=== PATIENT | male | born 1965 | race Caucasian/White ===

== ENCOUNTER 2020-06-20 15:08 | Outpatient (CLI) | payer OTHER, SELFPAY ==
--- NOTE | ~2020-06-20 | US_ITS ---
EXAMINATION: US carotid duplex BI DATE: 06/20/2020 15:47 INDICATION: Carotid bruit. TECHNIQUE: Grayscale, color Doppler, and pulsed Doppler images of the cervical carotid arteries were obtained. The degree of vessel stenosis is placed in one of the following categories: normal, <50%, 5 0-69%, >=70% but less than near-occlusion, near-occlusion, or total occlusion. Note that percent sten osis relative to normal distal artery lumen diameter is indirectly measured from velocity measurement s as described by Delroy, et al. Radiology 2003; 229:340-346. COMPARISON: Ultrasound 12/12/2005 FINDINGS: RIGHT: The right common carotid artery (CCA) peak systolic velocity (PSV) is 112 cm/s. The right internal ca rotid artery (ICA) PSV is 100 cm/s. The right ICA end-diastolic velocity (EDV) is 37 cm/s. The right ICA/CCA PSV ratio is 0.9. Grayscale and color Doppler images yield an estimate of <50% diameter reduc tion from plaque in the ICA. There is antegrade flow in the right vertebral artery. LEFT: The left CCA PSV is 118 cm/s. The left ICA PSV is 108 cm/s. The left ICA EDV is 18 cm/s. The left ICA /CCA PSV ratio is 0.9. Grayscale and color Doppler images yield an estimate of <50% diameter reductio n from plaque in the ICA. There is antegrade flow in the left vertebral artery. IMPRESSION: 1. <50% stenosis in the right internal carotid artery. 2. <50% stenosis in the left internal carotid artery. Reviewed, dictated and finalized at location B.
== END 2020-06-20 15:09 | disposition home or self-care (01) ==
PROVIDERS: PCP Internal Medicine; Visit Provider Internal Medicine Cardiovascular Disease
DX: R09.89 Other specified symptoms and signs involving the circulatory and respiratory systems (principal); Z72.0 Tobacco use; E78.5 Hyperlipidemia, unspecified; I65.23 Occlusion and stenosis of bilateral carotid arteries
CPT/HCPCS: 93880

== ENCOUNTER → 2021-02-28 15:17 | Outpatient (CLI) | payer OTHER, SELFPAY ==
--- NOTE | ~2021-02-28 | XR_ITS ---
EXAMINATION: XR hip RT min 2V DATE: 02/28/2021 15:46 INDICATION: Chronic right hip pain TECHNIQUE: Two views of right hip were obtained. COMPARISON: 02/10/2013 FINDINGS: There are four orthopedic screws in the right femoral neck without significant change. No h ardware failure or loosening is identified. Bone alignment is normal. There is no fracture. There is mild osteoarthritis of the hip. Phleboliths are noted in the pelvis. IMPRESSION: 1. No acute osseous abnormality. Reviewed, dictated and finalized at location F. [employer]
== END ==
PROVIDERS: Visit Provider Internal Medicine
DX: M54.41 Lumbago with sciatica, right side (principal)
CPT/HCPCS: 73502

== ENCOUNTER 2022-10-21 17:42 | Inpatient (IN) | payer OTHER, SELFPAY ==
--- NOTE | ~2022-10-21 | US_ITS ---
EXAMINATION:US venous doppler LE BI INDICATION:Lower extremity edema TECHNIQUE: Multiple grayscale, color flow and Doppler images of the right and left lower extremity de ep venous systems were obtained and reviewed. COMPARISON:No prior studies for comparison. FINDINGS: The common femoral, superficial femoral and popliteal veins demonstrate normal respiratory variation, augmentation and compressibility. Color flow is also seen within the posterior tibial, pe roneal, greater saphenous and profunda veins. IMPRESSION: 1: No lower extremity deep venous thrombosis. Reviewed, dictated and finalized at location B.
--- NOTE | ~2022-10-21 | CT_ITS ---
CT of the Abdomen and Pelvis: Indication: Abdominal pain, anemia Technique: 2.5 mm axial scans were obtained through the abdomen and pelvis following intravenous adm inistration of 100 cc of Omnipaque 350. Dose reduction technique was used on this scan by utilizing a utomated exposure control and iterative reconstruction technique. The dose-length product (DLP) was 1 102.67 mGy-cm. COMPARISON: 03/22/2009 Findings: Scans through the lung bases demonstrate minimal bilateral pleural effusions. The liver, spleen, pancreas, adrenals and right kidney are within normal limits. Small gallstones are present within the contracted gallbladder, with mild gallbladder wall thickening. Small nonobstructi ng left renal stones noted. There is fullness of the bilateral ureters. No evidence of aortic aneurys m. No lymphadenopathy. No bowel obstruction or bowel wall thickening. There is no evidence to suggest acute appendicitis. Images through the pelvis heart mildly degraded by streak artifact from bilateral femoral hardware. U rinary bladder is unremarkable. No pelvic mass identified. No ascites. Bilateral L5 pars interarticul susanne defects are present, with 9 mm anterolisthesis of L5 over S1. Impression: Cholelithiasis. Mild wall thickening contracted gallbladder. Correlate clinically for acute cholecyst itis. Consider HIDA scan as indicated. Small nonobstructing left renal stones. Distended urinary bladder and mild fullness of bilateral ureters. Correlate for urinary retention. Minimal bilateral pleural effusions. Bilateral L5 pars and reticular defects, with 9 mm anterolisthesis of L5 over S1. Reviewed, dictated and finalized at location . Impression: Cholelithiasis. Mild wall thickening contracted gallbladder. Correlate clinical ly for acute cholecystitis. Consider HIDA scan as indicated. Small nonobstructing left renal stones. Distended urinary bladder and mild fullness of bilateral ureters. Correlate for urinary retention. Minimal bilateral pleural effusions. Bilateral L5 pars and reticular defects, with 9 mm anterolisthesis of L5 over S 1.
--- NOTE | ~2022-10-21 | XR_ITS ---
EXAMINATION: XR chest 1V portable Exam Date/Time: 10/21/2022 22:23 CDT HISTORY: dyspnea; non smoker Comparison: 03/19/2009. RESULT: Lines, tubes, and devices: None. Lungs and pleura: Diffuse reticulonodular opacities. Cardiomediastinal silhouette: Stable. Other: No acute osseous or upper abdominal finding. Bone island in the right anterior rib. IMPRESSION: Pulmonary opacities may represent bronchiolitis, as can be seen with atypical infection, asthma, aspi ration, and small airways disease. Reviewed, dictated and finalized at location K. IMPRESSION: Pulmonary opacities may represent bronchiolitis, as can be seen with atypical i nfection, asthma, aspiration, and small airways disease.
[2022-10-21 17:45] VITALS: BP 121/55; PULSE 92; RESP 18; TEMP 37.2; O2SAT 100
[2022-10-21 19:49] VITALS: BP 102/54; PULSE 75; RESP 19; TEMP 36.5; O2SAT 98
[2022-10-21 21:55] VITALS: PULSE 81
[2022-10-21 22:00] VITALS: BP 122/64; PULSE 77; RESP 20; O2SAT 100
[2022-10-21 22:03] VITALS: RESP 17; O2SAT 100
--- NOTE | 2022-10-21 22:22 | ECG_ITS ---
Measurements Intervals [place] Rate: 77 P: 64 MI: 184 QRS: 55 QRSD: 102 T: 177 QT: 399 QTc: 454 Interpretive Statements SINUS RHYTHM RSR' IN V1 OR V2, CONSIDER RIGHT VENTRICULAR HYPERTROPHY OR RIGHT VCD ST-T WAVE ABNORMALITY IN LAT/HIGH LAT LEADS- CONSIDER ISCHEMIA ABNORMAL ECG NO PREVIOUS ECG AVAILABLE FOR COMPARISON Electronically Signed On 10-22-2022 6:25:13 CDT by Ruddy Mercado D.O.
[2022-10-21 23:03] LABS: Ammonia < 9 umol/L (9-30); Ethanol < 10 mg/dL (<10)
[2022-10-21 23:05] LABS: Appearance Urine Clear (Clear); Bacteria Urine None Seen /hpf; Bilirubin Urine Negative (Negative); Blood Urine Negative (Negative); Color Urine Yellow (Yellow); Glucose Urine UA Negative (Negative); Ketones Urine Negative (Negative); Leukocyte Esterase Ur Negative LEU/UL (Negative); Nitrate Urine Negative (Negative); Non Pathogenic Casts 0-2; Protein Urine 1+ mg/dL (Negative); RBC Urine 0-2 /hpf (0-2); Specific Grav Ur 1.014 (1.001-1.035); Squamous Epithelial Cell Urine None seen /hpf (Few); WBC Urine 0-5 /hpf; pH Urine 6.5 (5.0-9.0)
[2022-10-21] MEDS: FUROSEMIDE INJ 40 MG/4 ML VIAL IV PUSH (23:08)
[2022-10-21 23:23] LABS: Basophils Percent Auto 0.1 % (0.2-1.2); Eosinophils Absolute Auto 0.3 K/mm3 (0-0.3); Eosinophils Percent Auto 3.5 % (0-4.4); Immature Granulocyte Absolute 0.03 K/mm3 (0.00-0.031); Immature Granulocyte Percent A 0.4 % (0-0.5); Lymphocytes Absolute Auto 1.71 K/mm3 (0.9-3.2); Lymphocytes Percent Auto 21.5 % (18.3-44.2); Mean Corpuscular HGB Conc 23.9 g/dl (32-36); Mean Corpuscular Hemoglobin 18.1 pg (26-34); Mean Corpuscular Volume 75.7 fl (80-100); Mean Platelet Volume 12.5 fl (7.4-10.4); Monocytes Absolute Auto 0.6 K/mm3 (0.1-0.6); Monocytes Percent Auto 7.3 % (2.6-8.5); Neutrophils Absolute Auto 5.4 K/mm3 (1.3-6.7); Neutrophils Percent Auto 67.2 % (45.5-73.1); Nucleated Red Blood Cells Absolute Auto 0.3 K/mm3 (0.0-0.012); Nucleated Red Blood Cells Perc 3.8 % (0.0-0.2); Platelet Count Result 378 k/mm3 (150-375); Red Blood Count 1.44 M/mm3 (4.6-6.20); Red Cell Distribution Width 24.8 % (11.5-14.5)
[2022-10-21 23:34] LABS: INR 1.4
[2022-10-21 23:35] LABS: Partial Thromboplastin Time 28.1 SECONDS (22.3-36.8)
[2022-10-21 23:36] LABS: Hematocrit 10.9 % (42.0-52.0); Hemoglobin 2.6 g/dL (14.0-18.0)
[2022-10-21 23:40] LABS: Add Urine Microscopic? YES
[2022-10-21 23:40] LABS: Lactic Acid Reflex 1.7 mmol/L (0.7-2.0)
[2022-10-21 23:47] VITALS: BP 108/52; PULSE 85; RESP 16; O2SAT 98
[2022-10-21 23:49] LABS: Alanine Aminotransferase 25 U/L (6-50); Albumin Level 3.7 g/dL (3.5-5.1); Alkaline Phosphatase 109 U/L (38-126); Anion Gap 10 mmol/L (8-16); Aspartate Amino Transferase 30 U/L (17-59); Bilirubin,Total 0.2 mg/dL (0.2-1.3); Blood Urea Nitrogen 14 mg/dL (9-20); Calcium 8.5 mg/dL (8.4-10.2); Carbon Dioxide 23 mmol/L (22-30); Chloride 105 mmol/L (98-107); Estimated CRCL calculation 111 ml/min; Estimated Glomerular Filt Rate > 60; Glucose 93 mg/dL (65-110); Magnesium 2.5 mg/dL (1.6-2.3); Potassium 3.8 mmol/L (3.4-5.0); Sodium 138 mmol/L (137-145)
[2022-10-21 23:50] LABS: Platelet Estimate Adequate (Adequate)
[2022-10-21 23:51] LABS: Anisocytosis 2+ (NORMAL); Hypochromasia 2+ (NORMAL); Poikilocytosis 1+ (NORMAL); Polychromasia 1+ (NORMAL)
[2022-10-21 23:52] LABS: Schistocytes Rare (NORMAL)
[2022-10-22] VITALS (52 sets, daily range): BP systolic 100–142; BP diastolic 51–74; PULSE 47–86; RESP 13–22; TEMP 35.9–37; O2SAT 94–100; BMI 33.4
[2022-10-22] LABS: NT Pro B Type Natriuretic Pept 1190 pg/mL (19.9-100); Troponin I < 0.012 ng/mL (0.000-0.034)
--- NOTE | 2022-10-22 01:58 | ED.GENADULT ---
HPI - General Adult General Chief complaint: Unspecified Stated complaint: generalized swelling Time Seen by Provider: 10/21/22 22:01 History of Present Illness HPI narrative: Patient 56-year-old gentleman who presents emergency department chief complaint of shortness of breath with exertion and peripheral edema. Patient was recently admitted at [facility] for alcohol detox the patient also has atrial fibrillation and is on a DOAC. Patient reports that few weeks ago he had an episode of nosebleeds and stopped his anticoagulant until the bleeding subsided. Patient states that he has had no other bleeding since then reports no trauma reports no blood in his stool or black tarry stools. The patient reports that he has had significant edema of his lower extremities Related Data Allergies Allergy/AdvReac Type Severity Reaction Status Date / Time cephalexin Allergy Unknown AFFECTED Verified 10/21/22 22:00 BODY TEMP Penicillins Allergy Unknown Unknown Verified 10/21/22 22:00 piperacillin Allergy Unknown Unknown Verified 10/21/22 22:00 Sulfa (Sulfonamide Allergy Unknown Unknown Verified 10/21/22 22:00 Antibiotics) Review of Systems Review of Systems: A 10 system review of systems was completed on the patient and is negative except for what is stated in the HPI. Nursing and ancillary documentation was reviewed. [facility] Family History Family History Sibling Patient's sister is in good health Family history of diabetes mellitus in first degree relative Depression Mother Family history of diabetes mellitus in first degree relative Acute myocardial infarction Father Family history of lung cancer Patient's father is Family history of allergic disorder Grandparent Family history of heart disease in male family member before age 55 Other Diabetes mellitus Family history of arthritis Family history of lung disease Family history of malignant neoplasm Hypertension Social History Social History Smoking status: Never smoker Second hand tobacco smoke exposure: Yes Alcohol intake: never Exam Narrative: GENERAL: Ill-appearing, pale, and in no acute distress. HEAD: Normocephalic, atraumatic. EYES: PERRLA and EOMI. ENT: Nares clear, no rhinorrhea or epistaxis. Mucous membranes moist. NECK: Supple. CHEST: Clear to auscultation. No respiratory distress. HEART: Regular rate and rhythm. No murmur heard. Normal peripheral pulses. ABDOMEN: Soft, nontender, nondistended, normal active bowel sounds. : Guaiac negative stool EXTREMITIES: Normal range of motion. 2+ edema. SKIN: Warm, dry, no rash. NEURO: No focal deficits. Alert and oriented x3. PSYCH: Normal mood and affect. Course Vital Signs Vital signs: Vital Signs Temperature 37.2 C 10/21/22 17:45 Pulse Rate 92 10/21/22 17:45 Respiratory Rate 18 10/21/22 17:45 Blood Pressure 121/55 L 10/21/22 17:45 Pulse Oximetry 100 10/21/22 17:45 Oxygen Delivery Room Air 10/21/22 17:45 Temperature 36.5 C 10/21/22 19:49 Pulse Rate 76 10/22/22 02:06 Respiratory Rate 16 10/21/22 23:47 Blood Pressure 124/64 10/22/22 02:06 Pulse Oximetry 100 10/22/22 02:06 Oxygen Delivery Room Air 10/21/22 17:45 Medical Decision Making [facility] Narrative Medical decision making narrative: Differential diagnosis includes CHF, renal failure, anemia Laboratory studies were obtained on the patient which showed a hemoglobin of 2.6 this was verified by repeat blood draw Electrolytes showed normal CMP with a BUN of 14 and a creatinine is 0.8 Lactate is 1.7 magnesium is 2.5 ammonia was less than 9 troponin is less than 0.012 BNP was 1190 albumin was 3.7 Urinalysis showed no evidence of UTI EtOH was negative Chest x-ray showed no acute findings CT scan of the abdomen pelvis showed no acute find
[2022-10-22] MEDS: SODIUM CHLORIDE 0.9% IV 250 ML 30 ML IV CONT ×2 (03:27→16:45)
--- NOTE | 2022-10-22 05:04 | ADMGEN ---
This patient, Sebastián Bravo, was admitted to IMU Room 203-01 on 10/22/2022 at 0440. Patient/family oriented to hospital policies and general routines including ID bracelet, bed and alarms, visiting hours, pain management, procedures, bathroom and other care routines, personal items, smoking policy, room service/diet, and visiting hours. Information on how to activate the Rapid Response Team has been discussed. Patient/Family are encouraged to report perceived risks to care and to ask questions if they do not understand what they are told or what they should do.
[2022-10-22] MEDS: TUBING, BLOOD PLUM PUMP TUBING 1 EACH XX (05:50)
[2022-10-22] MEDS: SODIUM CHLORIDE 0.9% IV 250 ML 30 ML (05:51)
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
[2022-10-22] MEDS: PANTOPRAZOLE SODIUM IV 40 MG VIAL IV PUSH ×2 (08:27→20:50)
[2022-10-22 09:22] LABS: Hemoglobin 4.1 g/dL (14.0-18.0)
[2022-10-22 09:39] LABS: Iron 17 ug/dL (49-181)
[2022-10-22 09:48] LABS: Percent Iron Saturation 4 % (20-50)
[2022-10-22 09:51] LABS: Lactate Dehydrogenase 220 U/L (120-246)
[2022-10-22] MEDS: FUROSEMIDE INJ 40 MG/4 ML VIAL IV PUSH ×2 (09:59→18:32)
[2022-10-22] MEDS: THIAMINE HCL 200 MG/2 ML VIAL 100 MG IV PUSH (09:59)
[2022-10-22 10:03] LABS: Troponin I < 0.012 ng/mL (0.000-0.034)
[2022-10-22] MEDS: ARIPiprazole 5 MG TABLET 15 MG PO (10:05)
[2022-10-22] MEDS: GABAPENTIN 400 MG CAPSULE PO ×4 (10:06→20:50)
[2022-10-22] MEDS: DULoxetine HCL 60 MG CAPSULE.DR PO (10:06)
[2022-10-22] MEDS: LEVALBUTEROL NEB 1.25 MG/3 ML INHALATION ×3 (10:06→20:05)
[2022-10-22] MEDS: FOLIC ACID 1 MG TABLET PO (10:07)
[2022-10-22 10:15] LABS: Ferritin 4.49 ng/mL (11.1-264)
[2022-10-22 10:19] LABS: Immature Reticulocyte Fraction 6.4 % (3.0-15.9); Reticulocyte Hemoglobin Conten 14.6 pg (28.2-35.7); Reticulocyte Percent 4.19 % (0.7-4.3); Reticulocytes Absolute 0.08 M/mm3 (0.02-0.1)
[2022-10-22 10:28] LABS: Folic Acid 15.9 ng/mL (2.76->20)
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
[2022-10-22 16:03] LABS: Hematocrit 19.8 % (42.0-52.0); Hemoglobin 5.6 g/dL (14.0-18.0)
--- NOTE | 2022-10-22 17:10 | PC.NURSE ---
On 10/22/22, the student, Trae [employer], provided care and completed [facility] documentation on this patient. I have reviewed the student's documentation and agree with the findings.
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
[2022-10-22] MEDS: ATORVASTATIN 40 MG TABLET PO (20:49)
[2022-10-22] MEDS: METOPROLOL SUCCINATE EXT REL 25 MG TABCR PO (20:50)
[2022-10-22 22:21] LABS: Hematocrit 22.3 % (42.0-52.0)
[2022-10-22 22:23] LABS: Hemoglobin 6.7 g/dL (14.0-18.0)
[2022-10-23] VITALS (25 sets, daily range): BP systolic 101–133; BP diastolic 40–71; PULSE 51–78; RESP 16–20; TEMP 36.2–36.8; O2SAT 94–100
[2022-10-23 05:22] LABS: Basophils Absolute Auto 0.1 K/mm3 (0.0-0.1); Basophils Percent Auto 0.8 % (0.2-1.2); Eosinophils Absolute Auto 0.3 K/mm3 (0-0.3); Eosinophils Percent Auto 3.1 % (0-4.4); Hematocrit 22.6 % (42.0-52.0); Immature Granulocyte Absolute 0.04 K/mm3 (0.00-0.031); Immature Granulocyte Percent A 0.4 % (0-0.5); Lymphocytes Absolute Auto 1.55 K/mm3 (0.9-3.2); Lymphocytes Percent Auto 14.2 % (18.3-44.2); Mean Corpuscular HGB Conc 29.6 g/dl (32-36); Mean Corpuscular Hemoglobin 23.6 pg (26-34); Mean Corpuscular Volume 79.6 fl (80-100); Mean Platelet Volume 11.5 fl (7.4-10.4); Monocytes Absolute Auto 0.7 K/mm3 (0.1-0.6); Monocytes Percent Auto 6.8 % (2.6-8.5); Neutrophils Absolute Auto 8.2 K/mm3 (1.3-6.7); Neutrophils Percent Auto 74.7 % (45.5-73.1); Nucleated Red Blood Cells Absolute Auto 0.2 K/mm3 (0.0-0.012); Nucleated Red Blood Cells Perc 1.9 % (0.0-0.2); Platelet Count Result 284 k/mm3 (150-375); Red Blood Count 2.84 M/mm3 (4.6-6.20); Red Cell Distribution Width 20.9 % (11.5-14.5); White Blood Count 10.9 K/mm3 (4.5-10.0)
[2022-10-23 05:25] LABS: Hemoglobin 6.7 g/dL (14.0-18.0)
[2022-10-23 05:26] LABS: Hypochromasia 2+ (NORMAL); Platelet Estimate Adequate (Adequate); Schistocytes None Seen (NORMAL)
[2022-10-23 05:41] LABS: Alanine Aminotransferase 31 U/L (6-50); Albumin Level 2.9 g/dL (3.5-5.1); Alkaline Phosphatase 95 U/L (38-126); Anion Gap 2 mmol/L (8-16); Aspartate Amino Transferase 33 U/L (17-59); Bilirubin,Total 0.4 mg/dL (0.2-1.3); Blood Urea Nitrogen 14 mg/dL (9-20); Calcium 7.9 mg/dL (8.4-10.2); Carbon Dioxide 29 mmol/L (22-30); Chloride 104 mmol/L (98-107); Estimated CRCL calculation 103 ml/min; Estimated Glomerular Filt Rate > 60; Glucose 95 mg/dL (65-110); Potassium 3.4 mmol/L (3.4-5.0); Sodium 135 mmol/L (137-145)
[2022-10-23] MEDS: LEVALBUTEROL NEB 1.25 MG/3 ML INHALATION ×3 (08:06→20:49)
[2022-10-23] MEDS: DULoxetine HCL 60 MG CAPSULE.DR PO (08:28)
[2022-10-23] MEDS: FOLIC ACID 1 MG TABLET PO (08:29)
[2022-10-23] MEDS: PANTOPRAZOLE SODIUM IV 40 MG VIAL IV PUSH ×2 (08:29→20:29)
[2022-10-23] MEDS: GABAPENTIN 400 MG CAPSULE PO ×4 (08:29→20:29)
[2022-10-23] MEDS: FUROSEMIDE INJ 40 MG/4 ML VIAL IV PUSH ×2 (08:29→16:28)
[2022-10-23] MEDS: IRON SUCROSE COMPLEX 500 MG in SODIUM CHLORIDE 0.9% IV 250 ML 78.57 MG IVPB (08:30)
[2022-10-23] MEDS: THIAMINE HCL 200 MG/2 ML VIAL 100 MG IV PUSH (08:30)
--- NOTE | 2022-10-23 09:00 | ECG_ITS ---
Measurements Intervals [place] Rate: 56 P: 19 [place]: 180 QRS: 21 QRSD: 110 T: 156 QT: 425 QTc: 413 Interpretive Statements SINUS BRADYCARDIA RSR' IN V1 OR V2, CONSIDER RIGHT VENTRICULAR HYPERTROPHY OR RIGHT VCD ST-T WAVE ABNORMALITY IN LAT/HIGH LAT LEADS- CONSIDER ISCHEMIA ABNORMAL ECG COMPARED TO ECG 10/21/2022 22:52:14 SINUS BRADYCARDIA NOW PRESENT Electronically Signed On 10-23-2022 9:45:43 CDT by Ruddy Mercado D.O.
[2022-10-23] MEDS: BISACODYL 5 MG TABLET EC 10 MG PO ×3 (13:48→20:29)
[2022-10-23] MEDS: polyethylene glycoL 3350 238 GM BOTTLE PO (16:26)
--- NOTE | 2022-10-23 16:44 | PM.IMPN ---
Progress Note: A&P Assessment and Plan (1) Acute anemia: Code(s): D64.9 - Anemia, unspecified Status: Acute Assessment and Plan: Patient presents with weakness and found to have profound anemia with a hemoglobin of 2.6. Given his history of alcoholism and the fact he is on NOAC, etiology most likely is related to GI bleed albeit slowly since he is seems to be hemodynamically well compensated despite stool guaiac negative in ED. His nucleated red blood cells are elevated to suggest good bone marrow response so feel this is less likely myelodysplastic syndrome. Hemolysis seems less likely with normal bili and no Antibodies on cross match but has rare schistocytes. LDH normal. Iron studies consistent with iron deficiency so more likely GI blood loss He has been transfused 6 units of packed red blood cells total since admission and tolerated this well. Hgb up to 6.7 IV iron ordered. Resume Seroquel Continue serial H&H. Continue Protonix IV. Continue IV Lasix Appreciate GI and H/O consult. (2) High output heart failure: Code(s): I50.83 - High output heart failure Status: Acute Assessment and Plan: Patient with a history of a cardiomyopathy of unclear etiology. Patient has no history of heart failure. Given the profound anemia, suspect he has high-output heart failure given the pleural effusions and a significant pedal edema. He is wheezing but is a heavy smoker and this may be either cardiac related and/or from COPD. Lung exam better with diuresis and neb treatments. Lower extremity venous Dopplers negative for DVT. Negative fluid balance. Continue IV Lasix. (3) Alcoholism: Code(s): F10.20 - Alcohol dependence, uncomplicated Status: Acute Assessment and Plan: Patient has history of alcoholism. Last drink was 3-4 weeks ago. No history of seizures but does have a history of DTs. CIWA showing no signs of withdrawal. Continue thiamine and folate. Librium will be available as needed for signs of symptoms of withdrawal. (4) Atrial fibrillation: Code(s): I48.91 - Unspecified atrial fibrillation Status: Acute Assessment and Plan: Patient has a history of atrial fibrillation diagnosed a few months ago. EKG reviewed showing normal sinus rhythm with ST-T wave changes in lateral and high lateral leads. No old EKG to compare. Repeat EKG showing no change. He was on metoprolol for rate control and Eliquis for stroke prophylaxis. He has a history of stroke and his BRISA score is elevated (4 per Cards note) justifying anticoagulation. Eliquis currently on hold. Will need to discuss with him about the risks versus the benefits of anticoagulation depending on what we find has etiology of his anemia. (5) Cardiomyopathy: Code(s): I42.9 - Cardiomyopathy, unspecified Status: Acute Assessment and Plan: Echo in June 2022 shows EF 54% with LV OT obstruction without gradient. He also had a mobile echodensity on the mitral valve felt to be a torn chordae versus torn papillary muscle. As above. (6) COPD (chronic obstructive pulmonary disease): Code(s): J44.9 - Chronic obstructive pulmonary disease, unspecified Status: Acute Assessment and Plan: As above (7) Tobacco abuse: Code(s): Z72.0 - Tobacco use Status: Acute Assessment and Plan: Patient was educated about benefits smoking cessation. Plan Psychiatric disorder - not otherwise specified. QTc 454. Continue home medications. Hx of CVA - Brain CT in June showing age indeterminate right CVA centrum semi-ovale and old right frontal infarct. Elquis on hold. Continue atorvastatin. DVT prophylaxis - SCDs Diet - clear, NPO after MN Code status - full Subjective Date/time seen: 10/23/22 16:44 Interval history: 56yo male with hx of alcoholism, cardiomyopathy and AFib on anticoagulation here for weakness and leg swelling.?? Patient f
--- NOTE | 2022-10-23 17:17 | PC.NURSE ---
On 10/23/22, the student, Celina [facility], provided care and completed [facility] documentation on this patient. I have reviewed the student's documentation and agree with the findings.
[2022-10-23] MEDS: POTASSIUM CHLORIDE 20 MEQ ER TABLET 40 MEQ PO (17:49)
[2022-10-23 17:51] LABS: Hematocrit 25.8 % (42.0-52.0); Hemoglobin 7.7 g/dL (14.0-18.0)
[2022-10-23] MEDS: ATORVASTATIN 40 MG TABLET PO (20:30)
[2022-10-23] MEDS: METOPROLOL SUCCINATE EXT REL 25 MG TABCR PO (20:30)
[2022-10-24] VITALS (19 sets, daily range): BP systolic 103–148; BP diastolic 51–76; PULSE 51–84; RESP 12–20; TEMP 36.1–37.1; O2SAT 92–100
--- NOTE | 2022-10-24 | ECHO_ITS ---
Patient Info Name: Sebastián Bravo Age: 56 years : 1965 Gender: Male Ht: 72 in Wt: 240 lbs BSA: 2.38 m2 HR: 64 bpm BP: 135 / 63 mmHg Heart Rhythm: Sinus Rhythm Technical Quality: Fair Exam Date: 10/24/2022 11:30 AM Exam Location: [facility] Pulmonary Exam Room: 203 Patient Status: Inpatient Admit Date: 10/22/2022 Staff Ordering Physician: Florian Chandra MD Pre Billing Clinician: Brittny Rice RDCS Attending Provider: Maykel Calvillo MD Exam Type: CA echo doppler color flow Study Info Indications - CHF Complete two-dimensional, color flow and Doppler transthoracic echocardiogram is performed. Summary 1. Complete two-dimensional, color flow and Doppler transthoracic echocardiogram is performed. 2. Mild concentric LVH with hyperdynamic systolic function and grade 1 diastolic noncompliance. 3. Sclerosis and immobility of the right coronary cusp of the aortic valve with mild AI and no aortic stenosis. 4. Calcified mitral valve annulus. 5. Mild left atrial enlargement. 6. Mild MR. Left Ventricle Left ventricular chamber dimension is normal. Left ventricular systolic function is hyperdynamic, estimated at >70%. The left ventricular diastolic function is grade I diastolic dysfunction. Right Ventricle Right ventricular chamber dimension is normal. Left Atria Left atrial chamber dimension is mildly enlarged. Right Atria Right atrial chamber dimension is normal. Aortic Valve The aortic valve is trileaflet. There is mild aortic valve regurgitation. Pulmonic Valve The pulmonic valve is not well visualized. Mitral Valve The mitral valve has normal leaflets. There is mild mitral valve regurgitation. The mitral valve annulus is mildly calcified. Tricuspid Valve The tricuspid valve leaflets are normal. Pericardium/Pleural The pericardium appears normal. Aorta The aortic root size at the sinus of Valsalva is normal. Left Ventricular Outflow Tract Name Value Normal LVOT 2D LVOT Diameter 2.1 cm LVOT Doppler LVOT Peak Gradient 9 mmHg LVOT Mean Gradient 5 mmHg LVOT VTI 33 cm LVOT VTI/AV VTI Ratio 0.6 LVOT Stroke Volume 115 ml LVOT CO 22.3 l/min LVOT CI 9.4 l/min/m2 Pulmonic Valve Name Value Normal PV Doppler PV Peak Gradient 4 mmHg Mitral Valve Name Value Normal MV Doppler MV Decel Pike 475 cm/s2 MV PHT 73 ms MV Area (PHT) 3.0 cm2 4.0-5.0 MV Diastolic Func
[2022-10-24 00:23] LABS: Hematocrit 23.4 % (42.0-52.0)
[2022-10-24 00:27] LABS: Hemoglobin 6.9 g/dL (14.0-18.0)
[2022-10-24] MEDS: LEVALBUTEROL NEB 1.25 MG/3 ML INHALATION ×3 (03:45→20:17)
[2022-10-24 04:58] LABS: Basophils Absolute Auto 0.1 K/mm3 (0.0-0.1); Basophils Percent Auto 0.9 % (0.2-1.2); Eosinophils Absolute Auto 0.4 K/mm3 (0-0.3); Eosinophils Percent Auto 4.4 % (0-4.4); Hematocrit 22.3 % (42.0-52.0); Immature Granulocyte Absolute 0.04 K/mm3 (0.00-0.031); Immature Granulocyte Percent A 0.5 % (0-0.5); Lymphocytes Absolute Auto 1.34 K/mm3 (0.9-3.2); Lymphocytes Percent Auto 16.6 % (18.3-44.2); Mean Corpuscular Hemoglobin 23.9 pg (26-34); Mean Corpuscular Volume 79.6 fl (80-100); Mean Platelet Volume 11.5 fl (7.4-10.4); Monocytes Absolute Auto 0.8 K/mm3 (0.1-0.6); Monocytes Percent Auto 9.8 % (2.6-8.5); Neutrophils Absolute Auto 5.5 K/mm3 (1.3-6.7); Neutrophils Percent Auto 67.8 % (45.5-73.1); Nucleated Red Blood Cells Absolute Auto 0.4 K/mm3 (0.0-0.012); Nucleated Red Blood Cells Perc 4.6 % (0.0-0.2); Platelet Count Result 290 k/mm3 (150-375); Red Cell Distribution Width 21.2 % (11.5-14.5); White Blood Count 8.1 K/mm3 (4.5-10.0)
[2022-10-24 05:02] LABS: Hemoglobin 6.7 g/dL (14.0-18.0)
[2022-10-24 05:23] LABS: Anisocytosis 1+ (NORMAL); Basophilic Stippling 1+ (NORMAL); Hypochromasia 2+ (NORMAL); Large Platelets Present; Platelet Estimate Adequate (Adequate); Poikilocytosis 1+ (NORMAL); Polychromasia 1+ (NORMAL); Schistocytes Rare (NORMAL)
[2022-10-24 05:24] LABS: Anion Gap 4 mmol/L (8-16); Blood Urea Nitrogen 8 mg/dL (9-20); Calcium 8.1 mg/dL (8.4-10.2); Carbon Dioxide 31 mmol/L (22-30); Chloride 102 mmol/L (98-107); Estimated CRCL calculation 129 ml/min; Estimated Glomerular Filt Rate > 60; Glucose 84 mg/dL (65-110); Magnesium 1.9 mg/dL (1.6-2.3); Phosphorus 3.7 mg/dL (2.5-4.5); Potassium 3.1 mmol/L (3.4-5.0); Sodium 137 mmol/L (137-145)
[2022-10-24] MEDS: MAGNESIUM CITRATE 300 ML BTL 150 ML PO (08:07)
[2022-10-24] MEDS: GABAPENTIN 400 MG CAPSULE PO ×3 (08:08→21:31)
[2022-10-24] MEDS: POTASSIUM CHLORIDE 20 MEQ ER TABLET 40 MEQ PO (08:08)
[2022-10-24] MEDS: THIAMINE HCL 100 MG TABLET PO (08:09)
[2022-10-24] MEDS: DULoxetine HCL 60 MG CAPSULE.DR PO (08:09)
[2022-10-24] MEDS: FOLIC ACID 1 MG TABLET PO (08:09)
[2022-10-24] MEDS: PANTOPRAZOLE SODIUM IV 40 MG VIAL IV PUSH ×2 (08:10→21:31)
[2022-10-24] MEDS: FUROSEMIDE INJ 40 MG/4 ML VIAL IV PUSH ×2 (08:10→18:00)
[2022-10-24] MEDS: IRON SUCROSE COMPLEX 500 MG in SODIUM CHLORIDE 0.9% IV 250 ML 78.57 MG IVPB (09:18)
[2022-10-24] MEDS: POTASSIUM CHLORIDE 20 MEQ ER TABLET PO (09:22)
--- NOTE | 2022-10-24 11:08 | WPDANESEPPF ---
Anes - Initial Pre Proc Eval Procedure: Operation Date: 10/24/22 14:00 Proposed Procedures p Esophagogastroduodenoscopy & Colonoscopy - Yonathan Quiroz MD Date/Time: 10/24/22 11:08 Surgeon: Maykel Calvillo MD Pre Op Diagnosis: Acute Anemia, Dyspnea on Exertion Patient Data Age: 56 Gender: M Height: 1.83 m Weight: 107.8 kg Last Vital Signs Temp 37.1 C 10/24/22 08:00 Pulse 57 L 10/24/22 10:00 Resp 12 10/24/22 08:00 BP 136/59 L 10/24/22 08:00 Pulse Ox 95 10/24/22 08:00 O2 Del Method Room Air 10/24/22 08:00 FiO2 21 10/24/22 07:20 Allergies Allergy/AdvReac Type Severity Reaction Status Date / Time cephalexin Allergy Unknown AFFECTED Verified 10/24/22 12:46 BODY TEMP Penicillins Allergy Unknown Unknown Verified 10/24/22 12:46 piperacillin Allergy Unknown Unknown Verified 10/24/22 12:46 Sulfa (Sulfonamide Allergy Unknown Unknown Verified 10/24/22 12:46 Antibiotics) Home Medications Medication Instructions Recorded Confirmed Type apixaban 5 mg tablet (Eliquis) 5 mg PO BID 10/22/22 10/22/22 History aripiprazole 15 mg tablet 15 mg PO QAM 10/22/22 10/22/22 History atorvastatin 40 mg tablet 40 mg PO QHS 10/22/22 10/22/22 History duloxetine 60 mg capsule,delayed 60 mg PO DAILY 10/22/22 10/22/22 History release ergocalciferol (vitamin D2) 1,250 1,250 mcg PO WEEKLY 10/22/22 10/22/22 History mcg (50,000 unit) capsule furosemide 20 mg tablet 20 mg PO DAILY 10/22/22 10/22/22 History gabapentin 400 mg capsule 400 mg PO QID 10/22/22 10/22/22 History methocarbamol 500 mg tablet 500 mg PO BID 10/22/22 10/22/22 History metoprolol succinate 100 mg 50 mg PO QHS 10/22/22 10/22/22 History tablet,extended release 24 hr naltrexone 50 mg tablet 50 mg PO QAM 10/22/22 10/22/22 History quetiapine 150 mg tablet 150 mg PO QHS 10/22/22 10/22/22 History Laboratory Tests 10/23/22 10/24/22 10/24/22 17:11 00:00 04:50 WBC 8.1 K/mm3 (4.5-10.0) RBC 2.80 L M/mm3 (4.6-6.20) Hgb 7.7 L g/dL 6.9 L* g/dL 6.7 L* g/dL (14.0-18.0) (14.0-18.0) (14.0-18.0) Hct 25.8 L % 23.4 L % 22.3 L % (42.0-52.0) (42.0-52.0) (42.0-52.0) MCV 79.6 L fl (80-100) MCH 23.9 L pg (26-34) MCHC 30.0 L g/dl (32-36) RDW 21.2 H % (11.5-14.5) Plt Count 290 k/mm3 (150-375) MPV 11.5 H fl (7.4-10.4) Immature Gran % (Auto) 0.5 % (0-0.5) Neut % (Auto) 67.8 % (45.5-73.1) Lymph % (Auto) 16.6 L % (18.3-44.2) Walker % (Auto) 9.8 H % (2.6-8.5) Eos % (Auto) 4.4 % (0-4.4) Baso % (Auto) 0.9 % (0.2-1.2) Lymph # (Auto) 1.34 K/mm3 (0.9-3.2) Walker # (Auto) 0.8 H K/mm3 (0.1-0.6) Eos # (Auto) 0.4 H K/mm3 (0-0.3) Baso # (Auto) 0.1 K/mm3 (0.0-0.1) Abs Immat Gran (auto) 0.04 H K/mm3 (0.00-0.031) Absolute Neuts (auto) 5.5 K/mm3 (1.3-6.7) Absolute Nucleated RBC 0.4 H K/mm3 (0.0-0.012) Nucleated RBC % 4.6 H % (0.0-0.2) Platelet Estimate Adequate (Adequate) Large Platelets Present Polychromasia 1+ (NORMAL) Hypochromasia 2+ (NORMAL) Poikilocytosis 1+ (NORMAL) Basophilic Stippling 1+ (NORMAL) Anisocytosis 1+ (NORMAL) Schistocytes Rare (NORMAL) Sodium 137 mmol/L (137-145) Potassium 3.1 L mmol/L (3.4-5.0) Chloride 102 mmol/L (98-107) Carbon Dioxide 31 H mmol/L (22-30) Anion Gap 4 L mmol/L (8-16) BUN 8 L D mg/dL (9-20) Creatinine 0.70 mg/dL (0.7-1.3) Estim Creat Clear Calc 129 ml/min Estimated GFR > 60 (59 - ) Glucose 84 mg/dL (65-110) Calcium 8.1 L mg/dL (8.4-10.2) Phosphorus 3.7 mg/dL (2.5-4.5) Magnesium 1.9 mg/dL (1.6-2.
[2022-10-24] MEDS: LACTATED RINGERS 1,000 ML 150 ML IV CONT (12:45)
--- NOTE | 2022-10-24 14:20 | SUR.OPER ---
EGD END TIME: 1408 COLON START TIME: 1415
--- NOTE | 2022-10-24 17:42 | PM.IMPN ---
Progress Note: A&P Assessment and Plan (1) Acute anemia: Code(s): D64.9 - Anemia, unspecified Status: Acute Assessment and Plan: Patient presents with weakness and found to have profound anemia with a hemoglobin of 2.6. Given his history of alcoholism and the fact he is on NOAC, etiology most likely is related to GI bleed albeit slowly since he is seems to be hemodynamically well compensated and despite stool guaiac negative in ED. Iron studies consistent with iron deficiency so more likely GI blood loss. Retic count was normal and retic Hgb content low. Hemolysis seems less likely with normal bili and no antibodies on cross match but has rare schistocytes. LDH normal. Nucleated RBCs noted could be from hemolysis or stress from the severe anemia. Consider myelofibrosis. He has been transfused 6 units of packed red blood cells total since admission and tolerated this well. Hgb up to 6 range and stable IV iron ordered. Colonoscopy showing 2 polyps (ascending, descending colon) that were removed EGD showing nonerosive reflux disease with concerns for Barr's. Biopsies taken. Single AVM noted in 2nd part of the duodenum that was ablated. AVM causing intermittent blood loss? Continue to monitor H&H. Continue Protonix. Appreciate GI and H/O consult. Will discuss with others about if/when he can resume his DOAC (2) High output heart failure: Code(s): I50.83 - High output heart failure Status: Acute Assessment and Plan: Patient with a history of a cardiomyopathy of unclear etiology. Patient has no history of heart failure. Given the profound anemia, suspect he has high-output heart failure given the pleural effusions and a significant pedal edema. He was wheezing but is a heavy smoker and this may be either cardiac related and/or from COPD. Lung exam better with diuresis and neb treatments. Lower extremity venous Dopplers negative for DVT. Negative fluid balance but with persistent edema. Renal function okay. Monitor renal function, electrolytes and UOP. Continue IV Lasix. (3) Alcoholism: Code(s): F10.20 - Alcohol dependence, uncomplicated Status: Acute Assessment and Plan: Patient has history of alcoholism. Last drink was 3-4 weeks ago. No history of seizures but does have a history of DTs. CIWA showing no signs of withdrawal. Continue thiamine and folate. Librium will be available as needed for signs of symptoms of withdrawal. (4) Atrial fibrillation: Code(s): I48.91 - Unspecified atrial fibrillation Status: Acute Assessment and Plan: Patient has a history of atrial fibrillation diagnosed a few months ago. EKG reviewed showing normal sinus rhythm with ST-T wave changes in lateral and high lateral leads. No old EKG to compare. Repeat EKG showing no change. He was on metoprolol for rate control and Eliquis for stroke prophylaxis. He has a history of stroke and his BRISA score is elevated (at least 4 per Cards note) justifying anticoagulation. Eliquis currently on hold. Will need to discuss with him about the risks versus the benefits of anticoagulation (5) Cardiomyopathy: Code(s): I42.9 - Cardiomyopathy, unspecified Status: Acute Assessment and Plan: Echo in June 2022 shows EF 54% with LV OT obstruction without gradient. He also had a mobile echodensity on the mitral valve felt to be a torn chordae versus torn papillary muscle. Echo here showing mild concentric LVH with hyperdynamic systolic function grade 1 diastolic noncompliance with EF of 70%. He has sclerosis immobility of the right coronary cusp of the aortic valve with mild AI. No aortic stenosis. He had mild MR. As above. (6) COPD (chronic obstructive pulmonary disease): Code(s): J44.9 - Chronic obstructive pulmonary disease, unspecified Status: Acute Assessment and Plan: As above (7) Tobacco abuse: Code(s): Z72.0 - Tobacco u
[2022-10-24] MEDS: ATORVASTATIN 40 MG TABLET PO (21:31)
[2022-10-24] MEDS: METOPROLOL SUCCINATE EXT REL 25 MG TABCR PO (21:31)
[2022-10-24] MEDS: QUEtiapine FUMARATE 25 MG TABLET 150 MG PO (21:32)
--- NOTE | 2022-10-24 22:37 | PC.NURSE ---
This patient, Sebastián Bravo, was transferred to [[facility]] on 10/24/22 at 2153. Personal belongings sent with patient. Report given to [ Raghu]. Appropriate documentation sent with patient.
[2022-10-25] VITALS (10 sets, daily range): BP systolic 92–103; BP diastolic 44–60; PULSE 60–80; RESP 16–20; TEMP 35.9–37.3; O2SAT 92–98
[2022-10-25] MEDS: LEVALBUTEROL NEB 1.25 MG/3 ML INHALATION ×4 (02:45→19:52)
[2022-10-25 07:09] LABS: Basophils Absolute Auto 0.1 K/mm3 (0.0-0.1); Eosinophils Absolute Auto 0.4 K/mm3 (0-0.3); Eosinophils Percent Auto 3.9 % (0-4.4); Hematocrit 23.4 % (42.0-52.0); Immature Granulocyte Absolute 0.07 K/mm3 (0.00-0.031); Immature Granulocyte Percent A 0.7 % (0-0.5); Lymphocytes Absolute Auto 1.06 K/mm3 (0.9-3.2); Lymphocytes Percent Auto 10.6 % (18.3-44.2); Mean Corpuscular HGB Conc 28.6 g/dl (32-36); Mean Corpuscular Hemoglobin 24.2 pg (26-34); Mean Corpuscular Volume 84.5 fl (80-100); Mean Platelet Volume 12.7 fl (7.4-10.4); Monocytes Percent Auto 9.5 % (2.6-8.5); Neutrophils Absolute Auto 7.4 K/mm3 (1.3-6.7); Neutrophils Percent Auto 74.3 % (45.5-73.1); Nucleated Red Blood Cells Absolute Auto 0.8 K/mm3 (0.0-0.012); Nucleated Red Blood Cells Perc 8.3 % (0.0-0.2); Platelet Count Result 310 k/mm3 (150-375); Red Blood Count 2.77 M/mm3 (4.6-6.20); Red Cell Distribution Width 22.9 % (11.5-14.5)
[2022-10-25 07:25] LABS: Anion Gap 2 mmol/L (8-16); Blood Urea Nitrogen 9 mg/dL (9-20); Carbon Dioxide 31 mmol/L (22-30); Chloride 104 mmol/L (98-107); Estimated CRCL calculation 111 ml/min; Estimated Glomerular Filt Rate > 60; Glucose 117 mg/dL (65-110); Magnesium 2.3 mg/dL (1.6-2.3); Sodium 137 mmol/L (137-145)
[2022-10-25 07:38] LABS: Hemoglobin 6.7 g/dL (14.0-18.0)
[2022-10-25 07:39] LABS: Platelet Estimate Adequate (Adequate)
[2022-10-25 07:40] LABS: Acanthocytes 1+ (NORMAL); Anisocytosis 1+ (NORMAL); Ovalocytes 1+ (NORMAL); Poikilocytosis 2+ (NORMAL); Schistocytes Rare (NORMAL)
[2022-10-25] MEDS: PANTOPRAZOLE SODIUM IV 40 MG VIAL IV PUSH ×2 (08:12→20:31)
[2022-10-25] MEDS: POTASSIUM CHLORIDE 20 MEQ ER TABLET 40 MEQ PO (08:13)
[2022-10-25] MEDS: DULoxetine HCL 60 MG CAPSULE.DR PO (08:14)
[2022-10-25] MEDS: FUROSEMIDE INJ 40 MG/4 ML VIAL IV PUSH ×2 (08:14→16:36)
[2022-10-25] MEDS: GABAPENTIN 400 MG CAPSULE PO ×4 (08:14→20:31)
[2022-10-25] MEDS: THIAMINE HCL 100 MG TABLET PO (08:14)
[2022-10-25] MEDS: FOLIC ACID 1 MG TABLET PO (08:14)
[2022-10-25] MEDS: POTASSIUM CHLORIDE 20 MEQ ER TABLET PO (08:15)
--- NOTE | 2022-10-25 09:03 | WPDGIPROGNO ---
Progress Note: A&P Assessment and Plan (1) Iron deficiency anemia: Code(s): D50.9 - Iron deficiency anemia, unspecified Status: Acute Assessment and Plan: he states that he has never been anemic in the past to his knowledge and he has not seen what would look like blood in his stools. Sometimes his stools are little dark. He did however have a severe nosebleed for a couple of days recently. (2) COPD (chronic obstructive pulmonary disease): Code(s): J44.9 - Chronic obstructive pulmonary disease, unspecified Status: Acute (3) Alcoholism: Code(s): F10.20 - Alcohol dependence, uncomplicated Status: Acute Assessment and Plan: he went into rehab program in June of this year. He states he had a couple of relapses since then but has been sober for least a couple of weeks. (4) Dependent edema: Code(s): R60.9 - Edema, unspecified Status: Acute Assessment and Plan: Over the last couple weeks he has gradually noticed increasing swelling in his legs. (5) Dyspnea on exertion: Code(s): R06.09 - Other forms of dyspnea Status: Acute Assessment and Plan: The last week or 2 he is becoming drinking increasingly short of breath. simply walking across the room he would gets so short of breath he would need to sit down. (6) Epistaxis: Code(s): R04.0 - Epistaxis Status: Acute Assessment and Plan: He has severe nosebleed for couple of days recently. He has been on Eliquis but has been held. (7) Chronic anticoagulation: Code(s): Z79.01 - long-term (current) use of anticoagulants Status: Acute Assessment and Plan: due to a finding of atrial fibrillation earlier this year he has been on Eliquis. Plan I told him how low his blood counts are. His last hemoglobin is 4. This is after 2 or 3 units of blood. He states that he has had 4 total. I will schedule for EGD and colonoscopy to be done on Thursday. Will begin bowel prep tomorrow morning EGD did reveal 1 AVM in the duodenum which was cauterized. Colonoscopy revealed 2 polyps that were removed. Due to polypectomy I would prefer that DOAC be held until Thursday or Thursday if at all possible. Subjective Date/time seen: 10/25/22 09:03 no evidence of bleeding. Hemoglobin holding steady at 6.7. This is after he has received I believe 6 units of blood. He was given intravenous iron by Dr. Melchor who was following him. Exam Const: General: cooperative and healthy appearing Orientation/consciousness: patient oriented x3 HENMT: Head: normal to inspection Ears: hearing grossly normal bilaterally Face/Nose/Sinus: Abnormal external nose present ( Scarring from prior surgery) Mouth: Yes Normal oral and palatal mucosa present Eyes: General: appearance normal, both eyes and all related structures Neck: Neck: normal visual inspection Chest: Chest palpation & inspection: normal inspection of the chest Resp: Effort & Inspection: normal respiratory effort Auscultation: clear to auscultation bilaterally Cardio: Rate: regular rate Rhythm: regular rhythm GI: Inspection: normal to inspection Auscultation: normal bowel sounds Skin: General skin exam: normal color and no jaundice Neuro: General: patient oriented x3 Speech: normal speech Extrem: Other: severe edema both lower extremities. Objective Data Vital Signs Vital Signs: Vital Signs - 24 hr 10/24/22 10:00 10/24/22 12:00 10/24/22 12:00 Temperature 36.8 C Pulse Rate 57 L 56 L 66 Respiratory Rate 16 Blood Pressure 125/65 Pulse Oximetry 96 Oxygen Delivery Fraction of Inspired Oxygen 10/24/22 12:54 10/24/22 14:36 10/24/22 14:46 Temperature 36.1 C L Pulse Rate 57 L 70 54 L Respiratory Rate 20 18 18 Blood Pressure 148/76 H 103/58 L 109/59 L Pulse Oximetry 97 100 100 Oxygen Delivery Room Air Room Air Room Air Fraction of Inspired Oxygen 10/24/22 14:56 10/24
[2022-10-25 09:34] LABS: Haptoglobin 287 mg/dL (43-212)
--- NOTE | 2022-10-25 17:15 | PM.IMPN ---
Progress Note: A&P Assessment and Plan (1) Acute anemia: Code(s): D64.9 - Anemia, unspecified Status: Acute Assessment and Plan: Patient presents with weakness and found to have profound anemia with a hemoglobin of 2.6. Stool was guaiac negative in ED. Given his history of alcoholism and the fact he is on NOAC, etiology most likely is related to GI bleed albeit slowly since he is seems to be hemodynamically well compensated. Iron studies consistent with iron deficiency so more likely GI blood loss. Retic count was normal and retic Hgb content low. Hemolysis seems less likely with normal bili and no antibodies on cross match but has rare schistocytes. LDH normal. Nucleated RBCs noted could be from hemolysis or stress from the severe anemia. Consider myelofibrosis. He has been transfused 6 units of packed red blood cells total since admission and tolerated this well. Hgb up to 6 range and stable Treated with IV iron as well Colonoscopy showing 2 polyps (ascending, descending colon) that were removed EGD showing nonerosive reflux disease with concerns for Barr's. Biopsies taken. Single AVM noted in 2nd part of the duodenum that was ablated. AVM possibly the etiology of the intermittent blood loss Continue to monitor H&H. Continue Protonix. Appreciate GI and H/O consult. Due to polypectomy GI recommended that DOAC be held until Thursday or Thursday if at all possible. (2) High output heart failure: Code(s): I50.83 - High output heart failure Status: Acute Assessment and Plan: Patient with a history of a cardiomyopathy of unclear etiology. Patient has no history of heart failure. Given the profound anemia, suspect he has high-output heart failure given the pleural effusions and a significant pedal edema. He was wheezing but is a heavy smoker and this may be either cardiac related and/or from COPD. Lung exam better with diuresis and neb treatments. Lower extremity venous Dopplers negative for DVT. Negative fluid balance and edema better. Echo showing EF 70% with mild concentric LVH with hyperdynamic systolic function and diastolic noncompliance. Sclerosis and immobility of the right coronary cusp of the aortic valve with mild AI. Renal function okay. Patient asymptomatic. Monitor renal function, electrolytes and UOP. Change to oral Lasix tomorrow. (3) Alcoholism: Code(s): F10.20 - Alcohol dependence, uncomplicated Status: Acute Assessment and Plan: Patient has history of alcoholism. Last drink was 3-4 weeks ago. No history of seizures but does have a history of DTs. CIWA showing no signs of withdrawal. Continue thiamine and folate. Librium will be available as needed for signs of symptoms of withdrawal. (4) Atrial fibrillation: Code(s): I48.91 - Unspecified atrial fibrillation Status: Acute Assessment and Plan: Patient has a history of atrial fibrillation diagnosed a few months ago. EKG reviewed showing normal sinus rhythm with ST-T wave changes in lateral and high lateral leads. No old EKG to compare. Repeat EKG showing no change. He was on metoprolol for rate control and Eliquis for stroke prophylaxis. He has a history of stroke and his BRISA score is elevated (at least 4 per Cards note) justifying anticoagulation. Eliquis currently on hold. As above (5) Cardiomyopathy: Code(s): I42.9 - Cardiomyopathy, unspecified Status: Acute Assessment and Plan: Echo in June 2022 shows EF 54% with LV OT obstruction without gradient. He also had a mobile echodensity on the mitral valve felt to be a torn chordae versus torn papillary muscle. Echo here showing mild concentric LVH with hyperdynamic systolic function grade 1 diastolic noncompliance with EF of 70%. He has sclerosis immobility of the right coronary cusp of the aortic valve with mild AI. No aortic stenosis. He had mild MR. As above. (6) COPD (chronic obstructive pulmonary disea
[2022-10-25] MEDS: QUEtiapine FUMARATE 25 MG TABLET 150 MG PO (20:31)
[2022-10-25] MEDS: ATORVASTATIN 40 MG TABLET PO (20:31)
[2022-10-26 04:38] VITALS: BP 94/53; PULSE 77; RESP 16; TEMP 36.2; O2SAT 92
[2022-10-26 06:33] LABS: Hematocrit 24.8 % (42.0-52.0); Mean Corpuscular HGB Conc 28.2 g/dl (32-36); Mean Corpuscular Hemoglobin 24.1 pg (26-34); Mean Corpuscular Volume 85.5 fl (80-100); Mean Platelet Volume 11.6 fl (7.4-10.4); Platelet Count Result 288 k/mm3 (150-375); Red Cell Distribution Width 24.1 % (11.5-14.5); White Blood Count 10.5 K/mm3 (4.5-10.0)
[2022-10-26 06:39] LABS: Anion Gap 3 mmol/L (8-16); Blood Urea Nitrogen 11 mg/dL (9-20); Calcium 8.1 mg/dL (8.4-10.2); Carbon Dioxide 30 mmol/L (22-30); Chloride 105 mmol/L (98-107); Estimated CRCL calculation 126 ml/min; Estimated Glomerular Filt Rate > 60; Glucose 98 mg/dL (65-110); Potassium 3.5 mmol/L (3.4-5.0); Sodium 138 mmol/L (137-145)
[2022-10-26 07:05] VITALS: PULSE 74; RESP 16; O2SAT 91
[2022-10-26] MEDS: LEVALBUTEROL NEB 1.25 MG/3 ML INHALATION ×2 (07:08→13:04)
[2022-10-26 07:15] VITALS: PULSE 72; RESP 16
[2022-10-26] MEDS: GABAPENTIN 400 MG CAPSULE PO (08:53)
[2022-10-26] MEDS: DULoxetine HCL 60 MG CAPSULE.DR PO (08:53)
[2022-10-26] MEDS: THIAMINE HCL 100 MG TABLET PO (08:53)
[2022-10-26] MEDS: ARIPiprazole 5 MG TABLET 15 MG PO (08:53)
[2022-10-26] MEDS: FOLIC ACID 1 MG TABLET PO (08:53)
[2022-10-26] MEDS: PANTOPRAZOLE SODIUM IV 40 MG VIAL IV PUSH (08:58)
[2022-10-26] MEDS: ACETAMINOPHEN 325 MG TABLET 650 MG PO (11:27)
--- NOTE | 2022-10-26 13:10 | PM.DS ---
DS: Admitting Diagnosis Discharge Date 10/26/22 Admitting Diagnosis Weakness and leg swelling DS: Discharge Diagnosis Discharge Diagnosis (1) Acute anemia: Code(s): D64.9 - Anemia, unspecified Status: Acute (2) High output heart failure: Code(s): I50.83 - High output heart failure Status: Acute (3) Alcoholism: Code(s): F10.20 - Alcohol dependence, uncomplicated Status: Acute (4) Atrial fibrillation: Code(s): I48.91 - Unspecified atrial fibrillation Status: Acute (5) Cardiomyopathy: Code(s): I42.9 - Cardiomyopathy, unspecified Status: Acute (6) COPD (chronic obstructive pulmonary disease): Code(s): J44.9 - Chronic obstructive pulmonary disease, unspecified Status: Acute (7) Tobacco abuse: Code(s): Z72.0 - Tobacco use Status: Acute DS: Summary Hospital Course Reason for hospitalization: 56yo male with hx of alcoholism, cardiomyopathy and AFib on anticoagulation here for weakness and leg swelling.??Please see H&P for details. Hospital Course: Patient presents with weakness and found to have profound anemia with a hemoglobin of 2.6.? Stool was guaiac negative in ED. Given his history of alcoholism and the fact he is on NOAC, etiology most likely is related to GI bleed albeit slowly since he was hemodynamically well compensated. Iron studies consistent with iron deficiency. Retic count was normal and retic Hgb content low. Hemolysis seems less likely with normal bili and no antibodies on cross match but he did have rare schistocytes. LDH normal. Nucleated RBCs noted could be from hemolysis or stress from the severe anemia. Consider myelofibrosis. He has been transfused 6 units of packed red blood cells total since admission and tolerated this well. Hgb climbed to the 6 range and remained stable on serial checks (Hgb 7.0 at discharge). GI and H/O consulted. He was treated with IV iron. He underwent endoscopy showing: Colonoscopy showing 2 polyps (ascending, descending colon) that were removed EGD showing nonerosive reflux disease with concerns for Barr's. Biopsies taken. Single AVM noted in 2nd part of the duodenum that was ablated. AVM possibly the etiology of the intermittent blood loss. GI recommended that DOAC be held until Oct 27. Patient has a history of a cardiomyopathy of unclear etiology. Echo in June 2022 shows EF 54% with LV OT obstruction without gradient.? He also had a mobile echodensity on the mitral valve felt to be a torn chordae versus torn papillary muscle. Patient has no history of heart failure but clinically he had CHF.? Given the profound anemia, suspect he has high-output heart failure given the pleural effusions and a significant pedal edema.? He was wheezing but is a heavy smoker and this may be either cardiac related and/or from COPD.? Lung exam improved with diuresis and neb treatments. Lower extremity venous Dopplers negative for DVT. Echo showing EF 70% with mild concentric LVH with hyperdynamic systolic function and diastolic noncompliance. Sclerosis and immobility of the right coronary cusp of the aortic valve with mild AI. Treated with IV Lasix. Negative fluid balance and edema better. No CP, SOB or lightheadedness with standing so doubt he was overdiuresed. Patient has history of alcoholism.? Last drink was 3-4 weeks ago.? No history of seizures but does have a history of DTs.? CIWA protocol showing no signs of withdrawal. Treated with thiamine and folate.? Librium wsa available as needed for signs of symptoms of withdrawal but he never needed this. Patient has a history of atrial fibrillation diagnosed a few months ago.? EKG here reviewed showing normal sinus rhythm with ST-T wave changes in lateral and high lateral leads. No old EKG to compare. Repeat EKG showing no change. He was on metoprolol for rate control and Eliquis for stroke prophylaxis.? He has a history of stroke and his BRISA score is elevated (at least
== END 2022-10-26 15:15 | disposition home or self-care (01) | DRG 378 ==
LOC: ANHED 10-22 02:03 → ANHIMU 10-22 07:22 → ANH3MEDSUR 10-25 00:13
PROVIDERS: Internal Medicine Gastroenterology; Admitting Provider Internal Medicine; Emergency Provider Emergency Medicine; PCP Nurse Practitioner; Visit Provider Internal Medicine
PROC: 0DJ08ZZ Inspection of Upper Intestinal Tract, Via Natural or Artificial Opening Endoscopic (ICD-10-PCS; CPT 43235; principal; 2022-10-24 14:00)
DX: K55.21 Angiodysplasia of colon with hemorrhage (principal); D62 Acute posthemorrhagic anemia; I42.9 Cardiomyopathy, unspecified; I69.354 Hemiplegia and hemiparesis following cerebral infarction affecting left non-dominant side; F10.20 Alcohol dependence, uncomplicated; D12.2 Benign neoplasm of ascending colon; D12.4 Benign neoplasm of descending colon; K21.9 Gastro-esophageal reflux disease without esophagitis; I48.91 Unspecified atrial fibrillation; I50.83 High output heart failure; J44.9 Chronic obstructive pulmonary disease, unspecified; R04.0 Epistaxis; F17.210 Nicotine dependence, cigarettes, uncomplicated; Z79.01 Long term (current) use of anticoagulants
CPT/HCPCS: 36415; 36430; 71045; 74177; 80048; 80053; 80069; 80307; 81001; 82140; 82607; 82728; 82746; 83010; 83540; 83550; 83605; 83615; 83735; 83880; 84484; 85014; 85018; 85025; 85027; 85046; 85610; 85730; 86850; 86900; 86901; 86923; 87081; 88305; 93005; 93306; 93970; 94640; 96374; 99285; A9270; C9113; J0282; J1756; J1940; J2704; J3411; J7050; J7120; P9016; Q9967

== ENCOUNTER 2023-03-09 15:14 | Observation (INO) | payer OTHER, SELFPAY ==
[2023-03-09] VITALS (31 sets, daily range): BP systolic 109–158; BP diastolic 70–97; PULSE 106–157; RESP 12–28; TEMP 36.4–36.8; O2SAT 91–98; BMI 21.7; BMI 28.8
--- NOTE | ~2023-03-09 | US_ITS ---
EXAMINATION: US venous doppler [facility] DATE: 03/09/2023 20:52 INDICATION: swelling . TECHNIQUE: Grayscale images without and with compression and Doppler images of the bilateral lower ex tremity veins were obtained. COMPARISON: 10/22/2022 FINDINGS: The right common femoral vein, profunda (deep) femoral vein, femoral vein, popliteal vein, peroneal v ein, posterior tibial veins, gastrocnemius vein, and greater saphenous vein are patent. The left common femoral vein, profunda (deep) femoral vein, femoral vein, popliteal vein, peroneal v ein, posterior tibial veins, gastrocnemius vein, and greater saphenous vein are patent. IMPRESSION: Patent bilateral lower extremity veins. No evidence of deep venous thrombosis. Reviewed, dictated and finalized at location K. TRONIC CALIBRATION TECHNICIAN
--- NOTE | ~2023-03-09 | XR_ITS ---
EXAMINATION: XR chest 2V DATE: 03/09/2023 15:50 INDICATION: Chest pain. TECHNIQUE: Frontal and lateral views of the chest were obtained. COMPARISON: Chest single view 10/21/2022, CT abdomen and pelvis 10/22/2022 FINDINGS: There is no pneumonia, pleural effusion, or pneumothorax. The heart size is normal. IMPRESSION: 1. No acute cardiopulmonary disease. Reviewed, dictated and finalized at location A. IMEN PROCESSOR
--- NOTE | 2023-03-09 15:22 | ECG_ITS ---
Measurements Intervals [place] Rate: 150 P: DC: 0 QRS: 72 QRSD: 99 T: 239 QT: 282 QTc: 445 Interpretive Statements ATRIAL FIBRILLATION WITH RAPID VENTRICULAR RESPONSE LEFT VENTRICULAR HYPERTROPHY WITH ST-T CHANGE BORDERLINE R WAVE PROGRESSION, ANTERIOR LEADS ST-T WAVE ABNORMALITY IN INF/LAT LEADS- CONSIDER ISCHEMIA BASELINE ARTIFACT- I, II ABNORMAL ECG COMPARED TO ECG 10/23/2022 09:17:35 ATRIAL FIBRILLATION NOW PRESENT LEFT VENTRICULAR HYPERTROPHY NOW PRESENT ST-T WAVE ABNORMALITY NOW PRESENT Electronically Signed On 03-09-2023 17:03:05 AC/DC REWINDER by Ruddy Mercado D.O.
[2023-03-09 15:50] LABS: Basophils Absolute Auto 0.1 K/mm3 (0.0-0.1); Basophils Percent Auto 0.6 % (0.2-1.2); Eosinophils Percent Auto 0.1 % (0-4.4); Hematocrit 48.4 % (42.0-52.0); Hemoglobin 14.6 g/dL (14.0-18.0); Immature Granulocyte Absolute 0.05 K/mm3 (0.00-0.031); Immature Granulocyte Percent A 0.4 % (0-0.5); Immature Platelet Fraction Pct 10.9 % (0.9-11.2); Lymphocytes Absolute Auto 1.13 K/mm3 (0.9-3.2); Lymphocytes Percent Auto 9.1 % (18.3-44.2); Mean Corpuscular HGB Conc 30.2 g/dl (32-36); Mean Corpuscular Hemoglobin 25.6 pg (26-34); Mean Corpuscular Volume 84.9 fl (80-100); Monocytes Absolute Auto 0.4 K/mm3 (0.1-0.6); Monocytes Percent Auto 3.4 % (2.6-8.5); Neutrophils Absolute Auto 10.7 K/mm3 (1.3-6.7); Neutrophils Percent Auto 86.4 % (45.5-73.1); Platelet Count Result 148 k/mm3 (150-375); Red Cell Distribution Width 25.1 % (11.5-14.5); White Blood Count 12.4 K/mm3 (4.5-10.0)
[2023-03-09] MEDS: dilTIAZem HCl INJ 25 MG/5 ML VIAL 10 MG IV PUSH ×2 (15:54→17:29)
[2023-03-09] MEDS: dilTIAZem 100 MG/100 ML 100 MG/100 ML BAG IV CONT (15:54)
[2023-03-09 15:57] LABS: Ethanol 176 mg/dL (<10)
[2023-03-09 16:07] LABS: Partial Thromboplastin Time 26.3 SECONDS (22.3-36.8); Prothrombin Time 13.9 Seconds (11.1-14.7)
[2023-03-09 16:13] LABS: Anisocytosis 1+ (NORMAL); Ovalocytes 1+ (NORMAL); Platelet Estimate Adequate (Adequate); Schistocytes None Seen (NORMAL)
[2023-03-09 16:40] LABS: Alanine Aminotransferase 25 U/L (6-50); Albumin Level 4.3 g/dL (3.5-5.1); Alkaline Phosphatase 118 U/L (38-126); Anion Gap 22 mmol/L (8-16); Aspartate Amino Transferase 40 U/L (17-59); Bilirubin,Total 0.9 mg/dL (0.2-1.3); Blood Urea Nitrogen 21 mg/dL (9-20); Calcium 9.1 mg/dL (8.4-10.2); Carbon Dioxide 16 mmol/L (22-30); Chloride 100 mmol/L (98-107); Estimated CRCL calculation 99 ml/min; Estimated Glomerular Filt Rate > 60; Glucose 161 mg/dL (65-110); Lipase 126 U/L (23-300); Potassium 3.9 mmol/L (3.4-5.0); Sodium 138 mmol/L (137-145)
[2023-03-09 16:54] LABS: Troponin I 0.094 ng/mL (0.000-0.034)
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
[2023-03-09 19:26] LABS: Troponin I 0.115 ng/mL (0.000-0.034)
--- NOTE | 2023-03-09 20:03 | PC.NURSE ---
Pt stated to this RN that he does not want to be treated for withdraws. Hospitalist made aware. Pt does not show any signs of withdraws at this time. Pt does have history of CVA and reports at baseline he has left sided weakness and a left sided tremor of the arm.
[2023-03-09 20:23] LABS: Barbiturate Screen Urine Negative (Negative)
[2023-03-09 20:30] LABS: Amphetamine Screen Urine Negative (Negative); Cocaine Screen Urine Negative (Negative); Methadone Screen Urine Negative (Negative); Opiate Screen Urine Negative (Negative); Phencyclidine Screen Urine Negative (Negative)
[2023-03-09 20:45] LABS: Benzodiazepines Screen Urine Negative (Negative)
[2023-03-09 20:48] LABS: Cannabinoid Screen Urine Positive (Negative)
--- NOTE | 2023-03-09 21:14 | ADMGEN ---
This patient, Sebastián Bravo, was admitted to IMU Room 201-01. Patient/family oriented to hospital policies and general routines including ID bracelet, bed and alarms, visiting hours, pain management, procedures, bathroom and other care routines, personal items, smoking policy, room service/diet, and visiting hours. Information on how to activate the Rapid Response Team has been discussed. Patient/Family are encouraged to report perceived risks to care and to ask questions if they do not understand what they are told or what they should do.
--- NOTE | 2023-03-09 21:34 | ECG_ITS ---
Measurements Intervals [place] Rate: 102 P: 78 NC: 162 QRS: 67 QRSD: 98 T: 168 QT: 371 QTc: 485 Interpretive Statements SINUS TACHYCARDIA LEFT VENTRICULAR HYPERTROPHY AND ST-T CHANGE MINIMAL Q WAVES- INFERIOR LEADS ST-T WAVE ABNORMALITY IN ANT/HIGH LAT LEADS- CONSIDER ISCHEMIA ABNORMAL ECG COMPARED TO ECG 03/09/2023 15:26:06 SINUS TACHYCARDIA NOW PRESENT Electronically Signed On 03-10-2023 6:19:58 BURGLAR ALARM MECHANIC by Ruddy Mercado D.O.
[2023-03-09] MEDS: chlordiazePOXIDE (*CRX) 25 MG CAPSULE 50 MG PO ×2 (21:47→21:50)
[2023-03-09] MEDS: CALCIUM CARBONATE (TUMS) 500 MG (200 MG ELEMENTAL) 400 MG PO (21:51)
[2023-03-09] MEDS: NICOTINE (*PBKC) 21 MG PATCH 1 PATCH TRANSDERM (21:52)
[2023-03-09] MEDS: dilTIAZem 100 MG/100 ML 100 MG/100 ML BAG 10 MG IV CONT (21:55)
[2023-03-09 22:29] LABS: NT Pro B Type Natriuretic Pept 1810 pg/mL (19.9-100)
[2023-03-09 22:45] LABS: Troponin I 0.141 ng/mL (0.000-0.034)
[2023-03-09] MEDS: QUEtiapine FUMARATE 100 MG TABLET PO (22:59)
[2023-03-09] MEDS: QUEtiapine FUMARATE 25 MG TABLET 50 MG PO (22:59)
[2023-03-10] VITALS (21 sets, daily range): BP systolic 98–126; BP diastolic 60–70; PULSE 81–116; RESP 16–20; TEMP 36.4–36.6; O2SAT 93–100
--- NOTE | 2023-03-10 | ECHO_ITS ---
Patient Info Name: Sebastián Bravo Age: 57 years : 1965 Gender: Male Ht: 72 in Wt: 223 lbs BSA: 2.29 m2 HR: 88 bpm BP: 126 / 64 mmHg Heart Rhythm: Tachycardia Technical Quality: Good Exam Date: 03/10/2023 8:53 AM Exam Location: Echo Lab Patient Status: Outpatient Admit Date: 03/09/2023 Staff Ordering Physician: Sukumar Kaufman APRN Safety Equipment Testing Specialist: Elena Ruano RDCS Attending Provider: Ant Dale MD Referring Physician: Mandeep MCCARTHY; Exam Type: CA echo doppler color flow Study Info Indications - a fib rvr, positive troponin Complete two-dimensional, color flow and Doppler transthoracic echocardiogram is performed. Summary 1. Complete two-dimensional, color flow and Doppler transthoracic echocardiogram is performed. 2. Left ventricular chamber dimension is normal. 3. Left ventricular systolic function is hyperdynamic, estimated at >70%. 4. There is mildly increased left ventricular wall thickness. 5. The left ventricular diastolic function is grade I diastolic dysfunction. 6. Right ventricular systolic function is normal. 7. There is mild mitral valve regurgitation. 8. There is mild tricuspid valve regurgitation. Left Ventricle Left ventricular chamber dimension is normal. Left ventricular systolic function is hyperdynamic, estimated at >70%. There is mildly increased left ventricular wall thickness. The left ventricular diastolic function is grade I diastolic dysfunction. Right Ventricle Right ventricular chamber dimension is normal. Right ventricular systolic function is normal. Left Atria Left atrial chamber dimension is normal. Right Atria Right atrial chamber dimension is normal. Atrial Septum Intact interatrial septum visualized by color flow imaging. Aortic Valve The aortic valve is probable trileaflet. There is trace aortic valve regurgitation. There is moderate aortic valve calcification. Pulmonic Valve The pulmonic valve is not well visualized. Mitral Valve There is mild mitral valve regurgitation. The mitral valve annulus is mildly calcified. Tricuspid Valve There is mild tricuspid valve regurgitation. Pericardium/Pleural There is no pericardial effusion. Inferior Vena Cava Normal inferior vena cava with >50% collapse upon inspiration consistent with normal right atrial pressure, 3 mmHg. Aorta The aortic root size at the sinus of Valsalva is normal. Left Ventricular Outflow Tract Name Value Normal LVOT 2D LVOT Diameter 2.3 cm LVOT Doppler LVOT Peak Gradient 44 mmHg LVOT Mean Gradient 24 mmHg LVOT VTI 70 cm LVOT VTI/AV VTI Ratio 0.7 LVOT Stroke Volume 289 ml LVOT CO 28.0 l/min LVOT CI 12.2 l/min/m2 Pulmonic Valve Name Value Normal RVOT Doppler RVOT Peak Gradient
[2023-03-10] MEDS: chlordiazePOXIDE (*CRX) 25 MG CAPSULE 50 MG PO ×3 (05:06→17:44)
[2023-03-10 05:22] LABS: Basophils Absolute Auto 0.1 K/mm3 (0.0-0.1); Basophils Percent Auto 0.6 % (0.2-1.2); Eosinophils Absolute Auto 0.1 K/mm3 (0-0.3); Eosinophils Percent Auto 1.5 % (0-4.4); Hematocrit 41.4 % (42.0-52.0); Hemoglobin 12.8 g/dL (14.0-18.0); Immature Granulocyte Absolute 0.03 K/mm3 (0.00-0.031); Immature Granulocyte Percent A 0.3 % (0-0.5); Immature Platelet Fraction Pct 11.5 % (0.9-11.2); Lymphocytes Absolute Auto 1.73 K/mm3 (0.9-3.2); Lymphocytes Percent Auto 19.4 % (18.3-44.2); Mean Corpuscular HGB Conc 30.9 g/dl (32-36); Mean Corpuscular Hemoglobin 25.7 pg (26-34); Monocytes Absolute Auto 0.6 K/mm3 (0.1-0.6); Monocytes Percent Auto 7.1 % (2.6-8.5); Neutrophils Absolute Auto 6.4 K/mm3 (1.3-6.7); Neutrophils Percent Auto 71.1 % (45.5-73.1); Platelet Count Result 111 k/mm3 (150-375); Red Blood Count 4.99 M/mm3 (4.6-6.20); Red Cell Distribution Width 24.5 % (11.5-14.5); White Blood Count 8.9 K/mm3 (4.5-10.0)
[2023-03-10 05:25] LABS: Alanine Aminotransferase 24 U/L (6-50); Albumin Level 3.7 g/dL (3.5-5.1); Alkaline Phosphatase 118 U/L (38-126); Anion Gap 5 mmol/L (8-16); Aspartate Amino Transferase 43 U/L (17-59); Bilirubin,Total 1.5 mg/dL (0.2-1.3); Blood Urea Nitrogen 23 mg/dL (9-20); Calcium 9.1 mg/dL (8.4-10.2); Carbon Dioxide 31 mmol/L (22-30); Chloride 98 mmol/L (98-107); Estimated CRCL calculation 110 ml/min; Estimated Glomerular Filt Rate > 60; Glucose 130 mg/dL (65-110); Sodium 134 mmol/L (137-145)
--- NOTE | 2023-03-10 08:32 | PM.IMPN ---
Progress Note: A&P Assessment and Plan (1) Atrial fibrillation with rapid ventricular response: Code(s): I48.91 - Unspecified atrial fibrillation Status: Acute (2) Iron deficiency anemia: Qualifiers: Iron deficiency anemia type: inadequate dietary iron intake Qualified Code(s): D50.8 - Other iron deficiency anemias Code(s): D50.9 - Iron deficiency anemia, unspecified Status: Acute (3) COPD (chronic obstructive pulmonary disease): Qualifiers: COPD type: unspecified COPD Qualified Code(s): J44.9 - Chronic obstructive pulmonary disease, unspecified Code(s): J44.9 - Chronic obstructive pulmonary disease, unspecified Status: Acute (4) Alcoholism: Code(s): F10.20 - Alcohol dependence, uncomplicated Status: Acute (5) NSTEMI (non-ST elevated myocardial infarction): Code(s): I21.4 - Non-ST elevation (NSTEMI) myocardial infarction Status: Acute (6) Hypokalemia: Code(s): E87.6 - Hypokalemia Status: Acute Plan AFIB RVR -HR 150's POA -Cardizem 20mg IVP in ED -Cardizem gtt 5mg -cardiology consulted -BB resumed -HR in the 110's STACH -AC held patient refuses due to nose bleeds -Replenish electrolytes keep K >4.0 and mag >2.0 NSTEMI type II -serial troponins x3 upward trend current peak 0.141 -could be ischemic demand due to AFib RVR continue to trend -EKG AFIB RVR POA -cardiology consulted -Echo pending -possible stress test/catheterization if indicated -continuous cardiac monitoring -Patient AC not given due to nosebleeds per patient -cardiac risk factors: CAD, alcoholism, HLD, COPD, Smoker -smoking cessation -lifestyle modifications/heart healthy diet ETOH abuse -ETOH 176 POA -Banana bag/IV fluids x1 -Thiamine, folic acid, and multi-vitamin -PPI BID -librium -Ativan PRN for seizure activity -CIWA daily -Monitor and replenish electrolytes as needed -Seizure precautions if indicated COPD -Stable -Resume Inhaler -Supplemental oxygen PRN to maintain O2 92% Anemia -Iron deficiency -secondary to alcoholism -resumed Ferrous Sulfate -H&H stable -Transfuse if Hgb <7.0 Code status: Full code per patient DVT prophylaxis: SCD's Stress ulcer prophylaxis: Protonix 40 BID PT/OT notes: ambulatory Disposition: Time Spent With Patient Time with patient: 25 - 35 minutes Subjective Date/time seen: 03/10/23 08:32 Interval history: Chief Complaint: rapid heart rate Narrative: This is a 57-year-old male patient with past history of atrial fibrillation alcohol abuse tobacco abuse cardiomyopathy COPD and anemia her who is admitted to the hospital for AFib with RVR.? Patient reports that he has had episodes like this in the past.? Today he had sudden increase in his heart rate prompting him to present to the emergency department.? Heart rate was initially in the 150s received 2 doses diltiazem 10 mg boluses and started on a drip which has been titrated up to 15 milligrams/hour.? Patient denies history of alcohol withdrawal.? He is very upset stating that he did this to himself.? Patient is supposed to be on Eliquis but does not take it because whenever he is on an anticoagulant he gets nose bleeds that last for days.? He drinks 1 bottle of vodka daily.? Patient denies any chest pain shortness a breath nausea vomiting abdominal pain or leg pain.? He notes he always has lower leg swelling. 03/10: Patient seen sitting on the side of the bed, patient reports he did this to himself because of his drinking. Tele monitor show STACH converted overnight transition to PO BB. Cardiology consulted patient reports he cant take AC and is scheduled or getting work-up at [facility] for a procedure unsure of the name. Ablation, appendage closure?. Started patient on librium scheduled and CIWA ETOH on admission was 176. Review of Systems Review of Systems: All systems reviewed & are unremarkable except as noted in HPI and b
[2023-03-10 09:26] LABS: Troponin I 0.141 ng/mL (0.000-0.034)
[2023-03-10] MEDS: CHOLECALCIFEROL 1,000 UNITS TABLET 2000 UNITS PO (10:06)
[2023-03-10] MEDS: GABAPENTIN 300 MG CAPSULE PO ×3 (10:06→17:44)
[2023-03-10] MEDS: NICOTINE (*PBKC) 21 MG PATCH 1 PATCH TRANSDERM (10:06)
[2023-03-10] MEDS: FUROSEMIDE 40 MG TABLET PO (10:07)
[2023-03-10] MEDS: FERROUS SULFATE 325 MG TABLET DR PO (10:08)
[2023-03-10] MEDS: POTASSIUM CHLORIDE 20 MEQ ER TABLET 40 MEQ PO (10:09)
[2023-03-10] MEDS: METOPROLOL SUCCINATE EXT REL 100 MG TABCR PO (10:09)
[2023-03-10] MEDS: THIAMINE HCL 200 MG/2 ML VIAL 100 MG IV PUSH (10:10)
[2023-03-10] MEDS: PANTOPRAZOLE SODIUM IV 40 MG VIAL IV PUSH ×2 (10:15→21:01)
[2023-03-10] MEDS: THERAPEUTIC MULTIVITAMINS/MINERALS TAB (*BKC) 1 TABLET PO (10:15)
[2023-03-10] MEDS: FOLIC ACID 1 MG TABLET PO (10:15)
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
--- NOTE | 2023-03-10 12:34 | ECG_ITS ---
Measurements Intervals [place] Rate: 85 P: 32 [place]: 136 QRS: 39 QRSD: 100 T: 138 QT: 419 QTc: 500 Interpretive Statements SINUS RHYTHM POSSIBLE LEFT ATRIAL ENLARGEMENT LEFT VENTRICULAR HYPERTROPHY AND ST-T CHANGE CONSIDER INFERIOR INFARCT, AGE INDETERMINATE ST-T WAVE ABNORMALITY IN ANTERIOR LEADS- CONSIDER ISCHEMIA ABNORMAL ECG COMPARED TO ECG 03/09/2023 21:41:34 SINUS RHYTHM NOW PRESENT Electronically Signed On 03-10-2023 16:30:42 [employer] OPER[employer] by Ruddy Mercado D.O.
[2023-03-10] MEDS: rOPINIRole HCL 0.25 MG TABLET PO (21:01)
[2023-03-10] MEDS: ATORVASTATIN 40 MG TABLET PO (21:01)
[2023-03-10] MEDS: QUEtiapine FUMARATE 100 MG TABLET PO (21:01)
[2023-03-10] MEDS: QUEtiapine FUMARATE 25 MG TABLET 50 MG PO (21:01)
[2023-03-11] VITALS (14 sets, daily range): BP systolic 92–110; BP diastolic 61–96; PULSE 80–93; RESP 18–20; TEMP 36.5–36.7; O2SAT 94–95
[2023-03-11] MEDS: chlordiazePOXIDE (*CRX) 25 MG CAPSULE 50 MG PO ×2 (00:35→06:50)
[2023-03-11 04:58] LABS: Basophils Absolute Auto 0.1 K/mm3 (0.0-0.1); Basophils Percent Auto 0.9 % (0.2-1.2); Eosinophils Absolute Auto 0.3 K/mm3 (0-0.3); Eosinophils Percent Auto 5.4 % (0-4.4); Hematocrit 40.6 % (42.0-52.0); Hemoglobin 12.4 g/dL (14.0-18.0); Immature Granulocyte Absolute 0.02 K/mm3 (0.00-0.031); Immature Granulocyte Percent A 0.3 % (0-0.5); Lymphocytes Absolute Auto 1.57 K/mm3 (0.9-3.2); Lymphocytes Percent Auto 26.7 % (18.3-44.2); Mean Corpuscular HGB Conc 30.5 g/dl (32-36); Mean Corpuscular Hemoglobin 25.9 pg (26-34); Mean Corpuscular Volume 84.9 fl (80-100); Monocytes Absolute Auto 0.3 K/mm3 (0.1-0.6); Monocytes Percent Auto 5.8 % (2.6-8.5); Neutrophils Absolute Auto 3.6 K/mm3 (1.3-6.7); Neutrophils Percent Auto 60.9 % (45.5-73.1); Platelet Count Result 94 k/mm3 (150-375); Red Blood Count 4.78 M/mm3 (4.6-6.20); Red Cell Distribution Width 24.3 % (11.5-14.5); White Blood Count 5.9 K/mm3 (4.5-10.0)
[2023-03-11 05:17] LABS: Alanine Aminotransferase 28 U/L (6-50); Albumin Level 3.4 g/dL (3.5-5.1); Alkaline Phosphatase 93 U/L (38-126); Anion Gap 5 mmol/L (8-16); Aspartate Amino Transferase 55 U/L (17-59); Bilirubin,Total 0.7 mg/dL (0.2-1.3); Blood Urea Nitrogen 15 mg/dL (9-20); Calcium 8.9 mg/dL (8.4-10.2); Carbon Dioxide 29 mmol/L (22-30); Chloride 102 mmol/L (98-107); Estimated CRCL calculation 110 ml/min; Estimated Glomerular Filt Rate > 60; Glucose 115 mg/dL (65-110); Magnesium 2.1 mg/dL (1.6-2.3); Potassium 2.9 mmol/L (3.4-5.0); Sodium 136 mmol/L (137-145)
[2023-03-11 05:44] LABS: Anisocytosis 1+ (NORMAL); Hypochromasia 1+ (NORMAL); Ovalocytes 1+ (NORMAL); Platelet Estimate Decreased (Adequate); Poikilocytosis 1+ (NORMAL); Schistocytes None Seen (NORMAL)
[2023-03-11] MEDS: POTASSIUM CHLORIDE INJ 40 MEQ in SODIUM CHLORIDE 0.9% IV 500 ML 100 MEQ IVPB (06:49)
[2023-03-11] MEDS: THERAPEUTIC MULTIVITAMINS/MINERALS TAB (*BKC) 1 TABLET PO (10:05)
[2023-03-11] MEDS: FERROUS SULFATE 325 MG TABLET DR PO (10:05)
[2023-03-11] MEDS: POTASSIUM CHLORIDE 20 MEQ ER TABLET 40 MEQ PO (10:06)
[2023-03-11] MEDS: NICOTINE (*PBKC) 21 MG PATCH 1 PATCH TRANSDERM (10:07)
[2023-03-11] MEDS: CHOLECALCIFEROL 1,000 UNITS TABLET 2000 UNITS PO (10:09)
[2023-03-11] MEDS: FOLIC ACID 1 MG TABLET PO (10:09)
[2023-03-11] MEDS: METOPROLOL SUCCINATE EXT REL 100 MG TABCR PO (10:10)
[2023-03-11] MEDS: FUROSEMIDE 40 MG TABLET PO (10:10)
[2023-03-11] MEDS: GABAPENTIN 300 MG CAPSULE PO ×3 (10:10→16:42)
[2023-03-11] MEDS: PANTOPRAZOLE SODIUM IV 40 MG VIAL IV PUSH (10:11)
[2023-03-11] MEDS: THIAMINE HCL 200 MG/2 ML VIAL 100 MG IV PUSH (10:11)
[2023-03-11 14:35] LABS: Anion Gap 6 mmol/L (8-16); Blood Urea Nitrogen 14 mg/dL (9-20); Carbon Dioxide 32 mmol/L (22-30); Chloride 102 mmol/L (98-107); Estimated CRCL calculation 97 ml/min; Estimated Glomerular Filt Rate > 60; Glucose 101 mg/dL (65-110); Potassium 3.4 mmol/L (3.4-5.0); Sodium 140 mmol/L (137-145)
--- NOTE | 2023-03-11 15:45 | PM.DS ---
DS: Admitting Diagnosis Discharge Date 03/11/23 Admitting Diagnosis AFib RVR DS: Discharge Diagnosis Discharge Diagnosis (1) Atrial fibrillation with rapid ventricular response: Code(s): I48.91 - Unspecified atrial fibrillation Status: Acute (2) Iron deficiency anemia: Qualifiers: Iron deficiency anemia type: inadequate dietary iron intake Qualified Code(s): D50.8 - Other iron deficiency anemias Code(s): D50.9 - Iron deficiency anemia, unspecified Status: Acute (3) COPD (chronic obstructive pulmonary disease): Qualifiers: COPD type: unspecified COPD Qualified Code(s): J44.9 - Chronic obstructive pulmonary disease, unspecified Code(s): J44.9 - Chronic obstructive pulmonary disease, unspecified Status: Acute (4) Alcoholism: Code(s): F10.20 - Alcohol dependence, uncomplicated Status: Acute (5) NSTEMI (non-ST elevated myocardial infarction): Code(s): I21.4 - Non-ST elevation (NSTEMI) myocardial infarction Status: Acute (6) Hypokalemia: Code(s): E87.6 - Hypokalemia Status: Acute DS: Summary Hospital Course Hospital Course: This is a 57-year-old male with a past medical history of AFib, alcohol abuse, tobacco abuse, cardiomyopathy, COPD anemia that presented to the ED on 03/09/2023 with AFib RVR. Patient states that he felt like his heart rate was increase that prompted him to go to the ED. Heart rate was initially in the 150s received 2 doses diltiazem 10 mg boluses and started on a drip which has been titrated up to 15 milligrams/hour.? he was then able to be taken off of the diltiazem drip and his metoprolol p.o. was restarted. CIWA protocol initiated. Patient did not have any history of alcohol withdrawal. Patient's AFib RVR was converted and heart rate stayed within normal limit his stay. Will discharge patient back home. Labs and vital signs stable and he is medically cleared for discharge at this time. Time Spent with Patient Time attestation: Total time spent providing and/or coordinating discharge services: Exam Narrative: GENERAL: Comfortable, no acute distress HENMT: moist mucous membranes EYES: EOM intact b/l NECK: no lymphadenopathy RESPIRATORY: clear to auscultation CARDIO: RRR GI: soft, nontender, bowel sounds present SKIN: no rashes EXTREMITIES: no edema, redness or tenderness DS: Data Data Completed and Pending Labs on day of discharge: Labs from last 24 hours 03/11/23 03/11/23 13:59 04:13 WBC 5.9 RBC 4.78 Hgb 12.4 L Hct 40.6 L MCV 84.9 MCH 25.9 L MCHC 30.5 L RDW 24.3 H Plt Count 94 L MPV TNP Immature Gran % (Auto) 0.3 Neut % (Auto) 60.9 Lymph % (Auto) 26.7 [place] % (Auto) 5.8 Eos % (Auto) 5.4 H Baso % (Auto) 0.9 Lymph # (Auto) 1.57 [place] # (Auto) 0.3 Eos # (Auto) 0.3 Baso # (Auto) 0.1 Abs Immat Gran (auto) 0.02 Absolute Neuts (auto) 3.6 Absolute Nucleated RBC 0.0 Nucleated RBC % 0.0 Platelet Estimate Decreased Hypochromasia 1+ Poikilocytosis 1+ Anisocytosis 1+ Ovalocytes 1+ Schistocytes None seen Sodium 140 136 L Potassium 3.4 2.9 L Chloride 102 102 Carbon Dioxide 32 H 29 Anion Gap 6 L 5 L BUN 14 15 D Creatinine 0.80 0.70 Estim Creat Clear Calc 97 110 Estimated GFR > 60 > 60 Glucose 101 115 H Calcium 9.0 8.9 Magnesium 2.1 Total Bilirubin 0.7 AST 55 ALT 28 Alkaline Phosphatase 93 Total Protein 7.0 Albumin 3.4 L Discharge Plan Discharge Attending physician on discharge: Rasta Jackson Consulting providers: Annia Kaur Discharging Clinician: Anali Stubbs Patient Disposition: Home, Self-Care Activity: as tolerated Diet: regular Discharge Instructions: Discharge disposition: Take medications as prescribed Monitor blood pressures Avoid social areas, you wear a mask when in social settings Encouraged to continue with yearly vaccination
== END 2023-03-11 17:42 | disposition home or self-care (01) ==
LOC: ANHED 18:28 → ANHIMU 21:18
PROVIDERS: Emergency Medicine; Internal Medicine; Internal Medicine Critical Care Medicine; Nurse Practitioner; Nurse Practitioner Family; Admitting Provider Internal Medicine; Emergency Provider Emergency Medicine; PCP Nurse Practitioner; Visit Provider Family Medicine
DX: I21.4 Non-ST elevation (NSTEMI) myocardial infarction (principal); D50.9 Iron deficiency anemia, unspecified; J44.9 Chronic obstructive pulmonary disease, unspecified; E87.6 Hypokalemia; I48.91 Unspecified atrial fibrillation; I69.354 Hemiplegia and hemiparesis following cerebral infarction affecting left non-dominant side; Y90.6 Blood alcohol level of 120-199 mg/100 ml; I42.9 Cardiomyopathy, unspecified; R00.0 Tachycardia, unspecified; I08.3 Combined rheumatic disorders of mitral, aortic and tricuspid valves; M79.89 Other specified soft tissue disorders; F10.20 Alcohol dependence, uncomplicated; Z79.01 Long term (current) use of anticoagulants; F17.210 Nicotine dependence, cigarettes, uncomplicated; Z79.899 Other long term (current) drug therapy; Z82.49 Family history of ischemic heart disease and other diseases of the circulatory system; Z81.1 Family history of alcohol abuse and dependence
CPT/HCPCS: 36415; 71046; 80048; 80053; 80307; 83690; 83735; 83880; 84484; 85025; 85055; 85610; 85730; 93005; 93306; 93970; 96365; 96366; 96374; 96375; 96376; 99285; A9270; C9113; G0378; J3411; J3480; J7040

== ENCOUNTER 2024-04-18 16:10 | Outpatient (CLI) | payer OTHER, SELFPAY ==
--- NOTE | ~2024-04-18 | CT_ITS ---
CT Scan of the Chest without Contrast: Clinical Indication: Lung cancer screening, nicotine dependence Technique: Contiguous sections were acquired throughout the chest without intravenous contrast. Dose reduction technique was used on this scan by utilizing automated exposure control and iterative recon struction technique. The dose-length product (DLP) was 182.92 mGy-cm. Findings: There is no evidence of any significant mediastinal, hilar or axillary lymphadenopathy. Calcified rig ht hilar lymph nodes are present. There are mild coronary artery calcifications. There is no evidence of pleural or pericardial effusion. Calcified right upper lobe granuloma present. Images through the upper abdomen reveal no abnormalities. Impression: Lung RADS 2: Benign appearance. 12 month follow-up screening CT advised. Reviewed, dictated and finalized at location . Impression: Lung RADS 2: Benign appearance. 12 month follow-up screening CT advised.
== END 2024-04-18 16:11 | disposition home or self-care (01) ==
LOC: MICIMG 16:12
PROVIDERS: PCP Physician Assistant; Visit Provider Physician Assistant
DX: Z12.2 Encounter for screening for malignant neoplasm of respiratory organs (principal); Z87.891 Personal history of nicotine dependence
CPT/HCPCS: 71271